=== PATIENT | male | born 2000 | race Two or more races ===

== ENCOUNTER 2021-11-21 11:22 | Emergency (ER) | payer OTHER, SELFPAY ==
[2021-11-21 11:23] VITALS: BP 141/95; PULSE 78; RESP 14; TEMP 35.8; O2SAT 97; BMI 26.9
--- NOTE | 2021-11-21 11:48 | EDS_ITS ---
HPI History of Present Illness Chief Complaint: Wound Narrative Narrative: 21-year-old male presenting with abscess to the right jawline. Has been present for several days. Patient states he was on chronic doxycycline for an eye infection and has 2 months left of this. He was on a low dose of this per Dr. Cameron. After he was diagnosed with cellulitis of the right jawline he was started on a full dose of doxycycline. This did initially make the problem improved however he was out of doxycycline for about 3 days and during this time he developed some swelling in the right jawline. He states that last night it was started spontaneously draining after increasing pressure. He has been able to have some drainage of this today. He states he went to the [facility] nurse who told him to come to the emergency room for an I&D. Patient currently diagnosed with COVID-19 but has no respiratory symptoms. No fever or chills. No cough or shortness of breath. PFSH PFSH Home Medications hydrocodone-acetaminophen 1 tab PO Q6H PRN 3 Days #12 tab 11/21/21 [Rx Last Taken Unknown] Allergy/AdvReac Type Severity Reaction Status Date / Time No Known Allergies Allergy Verified 11/21/21 11:23 ROS ROS ED Constitutional Constitutional ED: Denies chills or fever(s) Eyes Eyes: Denies blurry vision or diplopia ENT ENT ED: Denies rhinorrhea or sore throat Cardiovascular Cardiovascular: Denies chest pain or palpitations Respiratory/Chest Respiratory/Chest: Denies cough or dyspnea Gastrointestinal Gastrointestinal: Denies abdominal pain, diarrhea, nausea or vomiting Genitourinary Genitourinary ED: Denies dysuria or hematuria Musculoskeletal Musculoskeletal: Denies arthralgias or myalgias Integumentary Reports other Details: Abscess to right mandible with spontaneous drainage Neurologic Neurologic: Denies headache(s) or weakness Psychiatric Psychiatric: Denies anxiety or depression EXAM Physical Exam Const Vital Signs: 11/21/21 11:23 Temperature 96.5 F L Temperature Source Temporal Pulse Rate 78 Respiratory Rate 14 Blood Pressure 141/95 H Blood Pressure Mean 110 Pulse Ox 97 Oxygen Delivery Method Room Air Positive well nourished General Appearance ED: NAD HEENT Reports moist mucous membranes Negative for trauma Eyes PERRL and EOMs intact bilaterally Resp normal respiratory effort and clear to auscultation bilaterally Cardio regular rate and regular rhythm Neuro oriented x3 and CN's II-XII intact bilaterally Sensorium / Orientation: alert and orientation impaired Motor Exam: strength 5/5 throughout Psych mental status grossly normal Skin Skin Narrative: 2 cm area of fluctuance on the right jawline with spontaneous drainage. This is not tense. Is mildly erythematous and tender to palpation. No crepitance. MDM MDM MDM Narrative Medical decision making narrative: Patient presenting for evaluation of an abscess on the right jawline which developed while he was out of antibiotics. He states it is currently spontaneously draining although he does have pain associated with this. Initially this was a cellulitis. He is also on chronic doxycycline for a left eye infection and is treated by Dr. Cameron. Since his symptoms have gotten better since he started his doxycycline back in his abscess is spontaneously draining I did have a long discussion with him about holding off on incision and drainage as believe a large scar on the face. I did credit counselor him that this should walled off and not continuously drain that he might come back for incision and drainage but I recommended that he continue hot compresses and warm soaks to try to keep this spontaneously draining. He can continue his doxycycline as he is improving on this. I will provide him with some [place] for pain as he states that starting to be painful. He does actively have COVID-19 without respiratory symptoms or febrile illness. He is given return precautions but I feel he is safe for discharge at this time. Impression: 1. Right-sided jaw abscess 2 cm 2. Cellulitis right mandible 3. History of COVID-19 Lab Data Attestation: I reviewed the patient's lab results. Discharge Plan Triage Chief Complaint: Wound ED Provider: Kwame Rivas Dx/Rx/DC Orders Instructions: ED Abscess Antibiotic Treatment Only Prescriptions: New hydrocodone-acetaminophen 5-325 mg tablet 1 tab PO Q6H PRN (Reason: pain) 3 Days Qty: 12 RF: 0 Disposition Disposition: Home, Self Care
== END 2021-11-21 12:07 | disposition home or self-care (01) ==
LOC: ED 12:01
PROVIDERS: Emergency Provider Student in an Organized Health Care Education/Training Program; Visit Provider Student in an Organized Health Care Education/Training Program
DX: M27.2 Inflammatory conditions of jaws (principal); L03.211 Cellulitis of face; U07.1 COVID-19
CPT/HCPCS: 99282